=== PATIENT | male | born 1940 | race Caucasian/White ===

== ENCOUNTER 2020-12-10 11:53 | Observation (INO) ==
[~2020-12-10 11:53] MED LIST: ceFAZolin 2 GM in DEXTROSE 5% IN WATER 50 ML IV SCH
[2020-12-10] MEDS ORDERED: IPRATROPIUM/ALBUTEROL 3 ML AMPUL.NEB NEB PRN ×2 (12:00→14:11)
[2020-12-10] MEDS ORDERED: SCOPOLAMINE 1 PATCH PATCH TOPICAL PRN (12:00)
--- NOTE | 2020-12-10 12:27 | XRay Report ---
CLINICAL INFORMATION: CHF - clear for surgery COMPARISON: 11/08/2020 FINDINGS: Pacemaker and leads are stable satisfactory position. Moderate cardiomegaly is unchanged. Mediastinum and pulmonary vessels are normal. Right basilar infiltrate has cleared. Large region of dense consolidated atelectasis or infiltrate in the left base with moderate left pleural effusion show slight improvement. A right PICC line tip overlies the SVC right atrial junction. IMPRESSION: 1. Large dense consolidated left lower lobe region of atelectasis or, less likely, infiltrate. Moderate Left pleural effusion-slight improvement. 2. Interval resolution right basilar infiltrate 3. Moderate cardiomegaly, but no evidence of pulmonary vascular congestion to suggest CHF. No change. Interpreted and Authenticated by: Shemar Negrete 12/10/20
[2020-12-10] MEDS ORDERED: KETAMINE 50 MG/ML ML ONE (13:30)
[2020-12-10] MEDS ORDERED: ONDANSETRON 4 MG/2 ML VIAL ONE (13:30)
[2020-12-10] MEDS ORDERED: ePHEDrine 50 MG/ML AMPUL IV ONE (13:30)
[2020-12-10] MEDS ORDERED: LIDOCAINE HCL/PF 100 MG/5 ML SYRINGE IV ONE (13:30)
[2020-12-10] MEDS ORDERED: PHENYLEPHRINE 10 MG/ML VIAL ONE (13:30)
[2020-12-10] MEDS ORDERED: PROPOFOL 200 MG/20 ML VIAL IV ONE (13:30)
[2020-12-10] MEDS ORDERED: MAGNESIUM SULFATE 2 GM/50 ML BAG IV ONE (13:30)
[2020-12-10] MEDS ORDERED: BUPIVACAINE 0.5% 50 ML VIAL IJ ONE (13:41)
[2020-12-10 14:05] LABS: Appearance,Urine CLEAR (Clear); Bilirubin,Urine Negative (Negative); Color,Urine STRAW; Culture Indicated,Urine No; Glucose,Urine (UA) Negative (Negative); Ketones,Urine Negative (Negative); Leukocyte Esterase,Urine Negative /ug (Negative); Mucus,Urine FEW /hpf; Nitrate,Urine Negative (Negative); Protein,Urine Negative (Negative); Specific Gravity,Urine 1.006 (1.000-1.035); Urine Blood Negative (Negative); Urine Hyaline Cast 34 /lph (0-2); Urine RBC 1 /hpf (0-3); Urine Squamous Epithelial Cell 0 /hpf (0-4); Urine WBC 1 /hpf (0-4); Urobilinogen,Urine Negative
[2020-12-10] MEDS ORDERED: LACTATED RINGERS 250 ML IV PRN (14:11)
[2020-12-10] MEDS ORDERED: ONDANSETRON 4 MG/2 ML VIAL IV PRN (14:11)
[2020-12-10] MEDS ORDERED: ACETAMINOPHEN 1,000 MG/100 ML BAG IV ONE (14:11)
[2020-12-10] MEDS ORDERED: MEPERIDINE 25 MG/ML VIAL IV PRN (14:11)
[2020-12-10] MEDS ORDERED: fentaNYL 100 MCG/2 ML VIAL IV PRN (14:11)
[2020-12-10] MEDS ORDERED: PROMETHAZINE 25 MG/ML VIAL IV PRN (14:11)
[2020-12-10] MEDS ORDERED: diphenhydrAMINE 50 MG/ML VIAL IV PRN (14:11)
[2020-12-10] MEDS ORDERED: NALOXONE HCL 0.4 MG/ML VIAL IV PRN (14:11)
[2020-12-10] MEDS ORDERED: LACTATED RINGERS 1,000 ML IV SCH (14:15)
[2020-12-10] MEDS ORDERED: METHOCARBAMOL 750 MG TABLET PO PRN (14:33)
[2020-12-10] MEDS ORDERED: HYDROcodone/APAP 10/325MG TABLET PO PRN (14:33)
--- NOTE | 2020-12-10 14:33 | Brief Operative Note ---
Brief Operative Note Date of procedure: 12/10/20 Pre-op diagnosis: gangrenous left foot Post-op diagnosis: same Procedure: L below knee amputation Grafts/Implants: No Anesthesia: GETA Findings: same Complications: none Complications Description: none Surgeon: Dalton Drummond Shearer Operator: Maciej Ventura Tourniquet Time (Minutes): 14 Specimens Removed/Pathology: none sent Condition: stable Disposition: PACU
[2020-12-10] MEDS ORDERED: FLEETS ADULT ENEMA PR PRN (14:35)
[2020-12-10] MEDS ORDERED: MAGNESIUM HYDROXIDE 30 ML ORAL.SUSP PO PRN (14:35)
[2020-12-10] MEDS ORDERED: BISACODYL 10 MG SUPP.RECT PR PRN (14:35)
[2020-12-10] MEDS ORDERED: ACETAMINOPHEN 325 MG TABLET PO PRN (14:41)
--- NOTE | 2020-12-10 15:57 | Internal Medicine Consult Note ---
HPI Data of Consult Primary Care Provider: PCP No Consult Narrative Patient Information: Note initiated : 12/10/20 at 3:49 pm Service Date, if different from initiated Date: [] Patient: Semaj Spears 80 y/o M admitted on for Left Below Knee Amputation. Chief Complaint: Lt BKA, management of med issues - IM consult H&P:- Mr. Spears is a 80-year-old gentleman with a history of atrial fibrillati on/HTN/CKD/DM type II/CHF/edema/neuropathy and PVD with multiple nonhealing left lower extremity diabetic ulcers managed by wound care. Patient has been struggling with his comorbidities over the last few months and has been in between multiple facilities and hospitalizations unable to fully recover. He was referred for left BKA and underwent operative intervention by orthopedics Dr. Dalton Drummond. Postoperatively hospitalist service was consulted in light of extensive comorbidities and prior medical health issues and the need for internal medicine consultation during current hospitalization At the time of my evaluation patient is immediately postop. He is able to answer most the questions. Denies fever chills, lightheadedness dizziness. Postop labs unremarkable with white count 14.1, hemoglobin 9.3 creatinine 2.9, phosphorus 6.4. Patient denies fever, chills, headaches Review of systems 10 point review system was performed and is negative except for ones discussed above cc:: CC: Dalton Drummond [facility] PFS All Active Problems (Updated 12/11/20 @ 07:36 by Maciej Ventura PA-C) Below-knee amputation of left lower extremity determined by examination (Acute) MEDS/ALLERGIES Home Medications and Allergies Home Medications Medication Instructions Recorded Confirmed Type Saccharomyces boulardii 250 mg PO BID 11/08/20 12/05/20 History acetaminophen [Tylenol] 650 mg PO Q4H PRN 11/08/20 12/05/20 History apixaban [Eliquis] 2.5 mg PO BID 11/08/20 12/05/20 History aspirin 162 mg PO QDAY 11/08/20 12/05/20 History bisacodyl 10 mg AR QDAY PRN 11/08/20 12/05/20 History bumetanide [Bumex] 5 mg PO BID 11/08/20 12/10/20 History ferrous sulfate 325 mg PO QDAY 11/08/20 12/05/20 History insulin glargine 15 unit SUBCUT QDAY 11/08/20 12/05/20 History lisinopril 10 mg PO QDAY 11/08/20 12/05/20 History magnesium hydroxide [Milk of 30 ml PO QDAY PRN 11/08/20 12/05/20 History Magnesia] magnesium oxide-Mg AA chelate 250 cap PO QDAY 11/08/20 12/05/20 History [Magnesium (oxide/AA chelate)] potassium chloride 20 meq PO BID 11/08/20 12/05/20 History potassium, sodium phosphates 1 packet PO BID 11/08/20 12/05/20 History [Phos-NaK] sodium phosphates [Fleet Enema] 118 ml AR DAILYP PRN 11/08/20 12/10/20 History tamsulosin 0.4 mg PO QHS 11/08/20 12/05/20 History Santyl 1 applic TOPICAL QDAY 12/05/20 12/05/20 History meropenem-0.9% sodium chloride 1 g IV BID 12/05/20 12/05/20 History metolazone 5 mg PO QDAY 12/05/20 12/05/20 History sertraline 25 mg PO QDAY 12/05/20 12/05/20 History vancomycin 1.25 g IV Q48H 12/05/20 12/10/20 History insulin lispro 0 unit SUBCUT TIDAC 12/10/20 12/10/20 History metoprolol succinate 75 mg PO BID 12/10/20 12/10/20 History Allergies Allergy/AdvReac Type Severity Reaction Status Date / Time No Known Drug Allergies Allergy Verified 12/05/20 14:25 EXAM Constitutional Vitals: Temp Pulse Resp BP Pulse Ox 97.9 F 93 H 15 122/72 93 12/10/20 15:05 12/10/20 15:05 12/10/20 15:05 12/10/20 15:05 12/10/20 15:05 Sedated postop but opens eyes to commands Head normocephalic Oral cavity dry No ear nose discharge Eye movement symmetrical Neck supple no lymphadenopathy S1-S2 irregular Nonlabored breathing Nondistended nontender abdomen Left BKA dressing Skin no suspicious lesion Psych sedated but responds to commands Neuro, limited exam DATA Data Completed and Pending Labs: Labs from last 24 hours 12/10/20 12:50 Urine Color Straw Urine Appearance Clear Urine pH 8.0 Ur Specific [place] 1.006 Urine Protein Negative Urine Glucose (UA) Negative Urine Ketones Negative Urine Occult Blood Negative Urine Nitrate Negative Urine Bilirubin Negative Urine Urobilinogen Negative Ur Leukocyte Esterase Negative Urine RBC 1 Urine WBC 1 Ur Squamous Epith Cells 0 Urine Bacteria None Hyaline Casts 34 H Urine Mucus Few A Ur Culture Indicated? No A/P Narrative A/P Narrative: * Left BKA managed per orthopedics. Hospitalist consult * History of DM type II continue basal prandial insulin/CC diet * Anticoagulation on apixaban, * History of atrial fibrillation continue metoprolol/amiodarone * History of hypertension restart beta-steffany, MARLENA inhibitor with holding parameters. * Anxiety disorder continue sertraline * History of CHF with lymphedema on Bumex/metolazone. Check echocardiogram * BPH continue home dose Flomax * Prophylaxis restart anticoagulation once approved by orthopedics Plan * Postoperative care as per orthopedics * Postop labs * Echocardiogram * Restart home medications * Antihypertensives with holding parameters * Nutrition support/therapies as tolerated * Discharge planning Time Spent With Patient Time: Total time spent is greater than 50% in coordination of care (as documented) at patient's floor/unit and/or counseling patient:
[2020-12-10] MEDS: POTASSIUM CHLORIDE 20 MEQ TABLET PO SCH (17:07)
[2020-12-10 17:16] LABS: Basophils # (Auto) 0.05 K/mcL (0.00-0.20); Basophils % (Auto) 0.4 % (0.0-2.0); Eosinophils # (Auto) 0.09 K/mcL (0.00-0.70); Eosinophils % (Auto) 0.6 % (0.0-7.0); Hematocrit 29.6 % (41.0-55.0); Hemoglobin 9.3 g/dL (13.5-16.5); Lymphocytes # (Auto) 0.64 K/mcL (1.50-4.80); Lymphocytes % (Auto) 4.5 % (15.0-49.0); Mean Cell Volume 88.1 fL (80.0-100.0); Mean Corpuscular HGB Conc 31.4 g/dL (31.0-36.0); Mean Platelet Volume 10.8 fL (7.4-10.4); Monocytes # (Auto) 0.24 K/mcL (0.10-0.90); Monocytes % (Auto) 1.7 % (1.0-12.0); Neutrophils % (Auto) 92.8 % (38.0-78.0); Platelet Count 406 K/mcL (140-440); RBC 3.36 M/mcL (4.50-5.90); Red Cell Distribution Width 14.6 % (11.5-14.5); WBC 14.1 K/mcL (4.5-11.0)
[2020-12-10 17:48] LABS: ALT/SGPT 56 U/L (<40); AST/SGOT 87 U/L (<40); Albumin 2.4 gm/dL (3.2-5.2); Albumin/Globulin Ratio 0.7 (1.0-2.3); Alkaline Phosphatase 97 U/L (39-117); Bilirubin,Direct 0.2 mg/dL (<0.3); Bilirubin,Total 0.4 mg/dL (0.1-1.0); Blood Urea Nitrogen 78 mg/dL (8-23); Calcium 9.6 mg/dL (8.6-10.4); Carbon Dioxide 29 mmol/L (22-30); Chloride 92 mmol/L (96-108); Globulin 3.4 gm/dL (2.2-3.7); Glomerular Filtration Rate 20; Glucose 151 mg/dL (70-105); Lactate Dehydrogenase 194 U/L (135-225); Phosphorous 6.4 mg/dL (2.5-4.5); Triglycerides 98 mg/dL (<150); Uric Acid 12.6 mg/dL (2.5-8.0)
[2020-12-10] MEDS ORDERED: DEXTROSE 31 GM ORAL.SUSP PO PRN (18:32)
[2020-12-10] MEDS ORDERED: DEXTROSE 50% 50 ML VIAL IV PRN (18:32)
[2020-12-10] MEDS: 0.9 % SODIUM CHLORIDE 1,000 ML IV SCH (19:11)
[2020-12-10] MEDS: TAMSULOSIN 0.4 MG CAPSULE PO SCH (20:17)
[2020-12-10] MEDS: NEUTRA PHOS 1 PACKET PO SCH (20:17)
[2020-12-10] MEDS: LACTOBACILLUS 1 CAPSULE PO SCH (20:17)
[2020-12-10] MEDS: APIXABAN 5 MG TABLET PO SCH (20:17)
[2020-12-10] MEDS: BUMETANIDE 1 MG TABLET PO SCH (20:17)
[2020-12-10] MEDS: INSULIN LISPRO 1 UNIT/0.01 ML UNIT SQ SCH (20:18)
[2020-12-10] MEDS ORDERED: MEROPENEM IV SCH (21:00)
[2020-12-10] MEDS ORDERED: SODIUM CHLORIDE IV SCH (21:00)
[2020-12-10] MEDS ORDERED: [UNRECOGNIZED DRUG - OTHER] IV SCH (21:00)
[2020-12-10] MEDS ORDERED: METOPROLOL TARTRATE 50 MG TABLET PO SCH (21:00)
[2020-12-11] MEDS ORDERED: 0.9 % SODIUM CHLORIDE 10 ML SYRINGE IV PRN (04:02)
[2020-12-11 07:12] LABS: Basophils # (Auto) 0.01 K/mcL (0.00-0.20); Basophils % (Auto) 0.1 % (0.0-2.0); Eosinophils # (Auto) 0 K/mcL (0.00-0.70); Eosinophils % (Auto) 0 % (0.0-7.0); Hemoglobin 8.9 g/dL (13.5-16.5); Lymphocytes # (Auto) 0.61 K/mcL (1.50-4.80); Lymphocytes % (Auto) 4.7 % (15.0-49.0); Mean Cell Volume 89.8 fL (80.0-100.0); Mean Corpuscular HGB Conc 30.7 g/dL (31.0-36.0); Mean Platelet Volume 10.9 fL (7.4-10.4); Monocytes # (Auto) 0.48 K/mcL (0.10-0.90); Monocytes % (Auto) 3.7 % (1.0-12.0); Neutrophils % (Auto) 91.5 % (38.0-78.0); Platelet Count 412 K/mcL (140-440); RBC 3.23 M/mcL (4.50-5.90); Red Cell Distribution Width 14.7 % (11.5-14.5); WBC 12.9 K/mcL (4.5-11.0)
--- NOTE | 2020-12-11 07:34 | Orthopedic Progress Note ---
SUBJECTIVE Subjective Patient information: Note initiated : 12/11/20 at 7:30 am Service Date, if different from initiated Date: [] Patient: Semaj Spears 80 y/o M admitted on for Left Below Knee Amputation. Chief Complaint: [] Interval History: POD 1 from left below the knee amputation. Patient is doing well and has no pain this morning. He is doing very well and denies any other acute complaints such as CIFUENTES, SOB, fever, chills, nausea, vomiting, or dizziness. Constitutional Vitals: Vital Signs Temp Pulse Resp BP Pulse Ox 98.3 F 93 H 16 123/82 95 12/11/20 03:23 12/11/20 03:23 12/11/20 03:23 12/11/20 03:23 12/11/20 03:23 Period Temp Pulse Resp BP Sys/Redd Pulse Ox Last 24 Hr 96.7 F-98.5 F 73-93 11-22 87-123/65-84 91-99 Intake and Output 12/10/20 12/11/20 12/11/20 21:59 05:59 13:59 Intake Total 1290 300 Output Total 981 650 Balance 309 -350 Weight 229 lb 9.6 oz Intake & Output: Intake & Output 12/10/20 12/11/20 12/11/20 21:59 05:59 13:59 Intake Total 1290 300 Output Total 981 650 Balance 309 -350 Weight 229 lb 9.6 oz Intake: IV 150 Ancef 2 gm In Dextrose 5% in 50 Water 50 ml @ 100 mls/hr IV PREOP GABBY Rx#:[id number] Oral 240 300 IV - Manual Only 900 Output: Urine Catheter Amount 250 Straight 250 Void Amount 650 650 # of times incontinent of urine 1 Estimated Blood Loss 80 Other: Urine Appearance Clear Straight Clear Urine Color Bright Yellow Straight Bright Yellow Urine Odor Straight Normal OBJ DATA Labs CBC & Chem 7: 12/11/20 05:48 12/10/20 16:25 Labs: Abnormal Lab Results 12/11/20 12/10/20 12/10/20 05:48 16:25 16:25 WBC 12.9 H 14.1 H RBC 3.23 L 3.36 L Hgb 8.9 L 9.3 L Hct 29.0 L 29.6 L MCHC 30.7 L RDW 14.7 H 14.6 H MPV 10.9 H 10.8 H Neut % (Auto) 91.5 H 92.8 H Lymph % (Auto) 4.7 L 4.5 L Lymph # (Auto) 0.61 L 0.64 L Absolute Neutrophils 11.80 H 13.06 H Chloride 92 L BUN 78 H Creatinine 2.9 H Glucose 151 H Uric Acid 12.6 H Phosphorus 6.4 H* Magnesium 2.9 H AST 87 H ALT 56 H Total Protein 5.8 L Albumin 2.4 L Albumin/Globulin Ratio 0.7 L Hyaline Casts Urine Mucus 12/10/20 12:50 WBC RBC Hgb Hct MCHC RDW MPV Neut % (Auto) Lymph % (Auto) Lymph # (Auto) Absolute Neutrophils Chloride BUN Creatinine Glucose Uric Acid Phosphorus Magnesium AST ALT Total Protein Albumin Albumin/Globulin Ratio Hyaline Casts 34 H Urine Mucus Few A Meds: Medications Acetaminophen (Acetaminophen 325 Mg Tablet) 650 mg PO Q4HP PRN PRN Reason: Pain Hydrocodone Bitart/Acetaminophen (Hydrocodone/Apap 10/325mg Tablet) 0 tab PO Q4HP PRN; Protocol PRN Reason: Per Pain Protocol Apixaban (Apixaban 5 Mg Tablet) 2.5 mg PO BID [facility] Last Admin: 12/10/20 20:17 Dose: 2.5 mg Documented by: Aspirin (Aspirin 81 Mg Tab.Chew) 162 mg PO DAILY [facility] Bisacodyl (Bisacodyl 10 Mg Supp.Rect) 10 mg [place] QDAY PRN PRN Reason: Constipation Bumetanide (Bumetanide 1 Mg Tablet) 5 mg PO BID [facility] Last Admin: 12/10/20 20:17 Dose: 5 mg Documented by: Collagenase (Collagenase Top Oint Tube 30gm) 1 dose TOPICAL DAILY [facility] Dextrose (Dextrose 50% 50 Ml Vial) 0 ml IV UD PRN PRN Reason: Hypoglycemia Diagnostic Test (Pha) (Accu-Chek 1 Each Strip) 1 each FS ACHS [facility] Last Admin: 12/10/20 20:18 Dose: 1 each Documented by: Ferrous Sulfate (Ferrous Sulfate 325 Mg Tablet) 325 mg PO QAC [facility] Glucose (Dextrose 31 Gm Oral.Susp) 15 gm PO PRN PRN PRN Reason: Hypoglycemia Heparin Sodium (Porcine) (Heparin Flush 10 Units/Ml 5 Ml Syringe) 2 ml IV Q12 [facility] Sodium Chloride (Sodium Chloride 0.9%) 1,000 mls @ 75 mls/hr IV .[id number] [facility] Last Admin: 12/10/20 19:11 Dose: 75 mls/hr Documented by: Insulin Glargine (Insulin Glargine, Human 1 Unit/0.01 Ml) 15 unit SQ QDAY [facility] Insulin Human Lispro (Insulin Lispro 1 Unit/0.01 Ml Unit) 0 unit SQ ACHS [facility]; Protocol Last Admin: 12/10/20 20:18 Dose: 3 units Documented by: Lactobacillus Rhamnosus (Lactobacillus 1 Capsule) 1 cap PO BID [facility] Last Admin: 12/10/20 20:17 Dose: 1 cap Documented by: Lisinopril (Lisinopril 10 Mg Tablet) 10 mg PO QDAY [facility] Magnesium Hydroxide (Magnesium Hydroxide 30 Ml Oral.Susp) 30 ml PO QDAY PRN PRN Reason: Constipation Magnesium Oxide (Magnesium Oxide 400 Mg Tablet) 400 mg PO DAILY [facility] Methocarbamol (Methocarbamol 750 Mg Tablet) 750 mg PO Q6HP PRN PRN Reason: Muscle Spasm Metolazone (Metolazone 2.5 Mg Tablet) 5 mg PO DAILY@0830 [facility] Metoprolol Tartrate (Metoprolol Tartrate 50 Mg Tablet) 75 mg PO BID [facility] Last Admin: 12/10/20 20:16 Dose: 75 mg Documented by: Potassium Chloride (Potassium Chloride 20 Meq Tablet) 20 meq PO BIDCC [facility] Last Admin: 12/10/20 17:07 Dose: 20 meq Documented by: Potassium/Phosphorus/Sodium (Neutra Phos 1 Packet) 1 packet PO BID [facility] Last Admin: 12/10/20 20:17 Dose: 1 packet Documented by: Sertraline HCl (Sertraline 50 Mg Tablet) 25 mg PO DAILY [facility] Sodium Biphosphate/Sodium Phosphate (Fleets Adult Enema) 1 dose [place] DAILYP PRN PRN Reason: Constipation Sodium Chloride (0.9 % Sodium Chloride 10 Ml Syringe) 10 ml IV UD PRN PRN Reason: FLUSH Sodium Chloride (0.9 % Sodium Chloride 10 Ml Syringe) 10 ml IV Q12 [facility] Tamsulosin HCl (Tamsulosin 0.4 Mg Capsule) 0.4 mg PO QHS [facility] Last Admin: 12/10/20 20:17 Dose: 0.4 mg Documented by: A/P Assessment and plan (1) Below-knee amputation of left lower extremity determined by examination: Status: Acute Comment: Patient is POD 1 from Left Below the Knee Amputation 1. Leave dressings in place until POD 2 and then dressing changes daily, nupuroftony and guaze 2. Reapply knee brace after dressing changes 3. Call [facility] for Rigid Removable Brace fitting 4. Plan for discharge to SNF in next 1-2 days. Time Spent With Patient Time: Total time spent is greater than 50% in coordination of care (as documented) at patient's floor/unit and/or counseling patient:
[2020-12-11 08:02] LABS: ALT/SGPT 42 U/L (<40); AST/SGOT 55 U/L (<40); Albumin 2.2 gm/dL (3.2-5.2); Albumin/Globulin Ratio 0.6 (1.0-2.3); Alkaline Phosphatase 109 U/L (39-117); Bilirubin,Direct < 0.2 mg/dL (0-0.3); Bilirubin,Total 0.3 mg/dL (0.1-1.0); Blood Urea Nitrogen 84 mg/dL (8-23); Carbon Dioxide 28 mmol/L (22-30); Chloride 89 mmol/L (96-108); Globulin 3.4 gm/dL (2.2-3.7); Glomerular Filtration Rate 21; Glucose 309 mg/dL (70-105); Lactate Dehydrogenase 195 U/L (135-225); Phosphorous 6.8 mg/dL (2.5-4.5); Triglycerides 102 mg/dL (<150); Uric Acid 12.9 mg/dL (2.5-8.0)
[2020-12-11] MEDS: INSULIN LISPRO 1 UNIT/0.01 ML UNIT SQ SCH ×4 (08:54→21:43)
[2020-12-11] MEDS ORDERED: MAGNESIUM OXIDE 400 MG TABLET PO SCH (09:00)
[2020-12-11] MEDS: METOPROLOL SUCCINATE 50 MG TAB.XL.24H PO SCH ×2 (09:02→21:44)
[2020-12-11] MEDS: ASPIRIN 81 MG TAB.CHEW PO SCH (09:03)
[2020-12-11] MEDS: LISINOPRIL 10 MG TABLET PO SCH (09:03)
[2020-12-11] MEDS: METOLAZONE 2.5 MG TABLET PO SCH (09:03)
[2020-12-11] MEDS: SERTRALINE 50 MG TABLET PO SCH (09:03)
[2020-12-11] MEDS: LACTOBACILLUS 1 CAPSULE PO SCH ×2 (09:03→21:46)
[2020-12-11] MEDS: APIXABAN 5 MG TABLET PO SCH ×2 (09:03→21:45)
[2020-12-11] MEDS: POTASSIUM CHLORIDE 20 MEQ TABLET PO SCH ×2 (09:04→18:07)
[2020-12-11] MEDS: 0.9 % SODIUM CHLORIDE 1,000 ML IV SCH (09:04)
[2020-12-11] MEDS: FERROUS SULFATE 325 MG TABLET PO SCH (09:04)
[2020-12-11] MEDS: 0.9 % SODIUM CHLORIDE 10 ML SYRINGE IV SCH ×2 (09:09→21:50)
[2020-12-11] MEDS: NEUTRA PHOS 1 PACKET PO SCH ×2 (09:09→09:29)
--- NOTE | 2020-12-11 10:08 | Operative Note ---
DATE OF OPERATION: 12/10/2020 PREOPERATIVE DIAGNOSIS: Gangrenous left foot. POSTOPERATIVE DIAGNOSIS: Gangrenous left foot. OPERATION: [id number] amputation on the left. SURGEON: Dalton Drummond M.D. GRASSLAND CONSERVATIONIST: Maciej Ventura PA-C. The PA's assistance was required for the safe and efficient completion of the entire case. This provider's expertise and technical skill were required throughout the case. The PA assisted with preoperative coordination, intraoperative retraction, wound closure, dressing and splint application, as well as postoperative documentation and care coordination. ANESTHESIA: General. TOURNIQUET TIME: 14 minutes. ESTIMATED BLOOD LOSS: 100 mL. SUMMARY OF PROCEDURE: General anesthesia was attained. The left leg was prepped and draped. A thigh level tourniquet was put up. A modified fishmouth incision was made in the diaphyseal region of the left tibia and fibula. The anterior flap was taken down directly to the bone. The anterior muscles were released with the Bovie and vessels coagulated where necessary. The bone was osteotomized on the tibia and an anterior bevel was taken. This was roughly 4 fingerbreadths below the tibial tubercle. The fibula was osteotomized about 1 cm above the tibia cut. The posterior flap was then fashioned using a cake knife and beveling the posterior muscles. The popliteal artery was identified and suture ligated, as were surrounding veins. The saphenous nerve was identified. It was injected with 7 mL of Marcaine and then transected above the level of the bone cut. The superficial peroneal nerve was also identified and injected with 3 mL of Marcaine and then transected above the level of the bone cut. The tourniquet was let down. The wound was thoroughly irrigated. All bleeding points were coagulated or tied off. Two drill holes were made in the anterior tibia, and 2-0 Vicryl sutures were placed, which went from the bone into the superficial and deep posterior fascia reducing the posterior flap. The flap was then closed in layers using 0 Vicryl on the fascial closure, 2-0 Monocryl on the subcutaneous closure, and mattress sutures of 0 Prolene on the skin. A sterile compressive dressing was applied, followed by a knee immobilizer set at 0 to 30 degrees. The sponge and needle count was correct. The patient tolerated the procedure well and was taken to the recovery room in stable condition. TJF:sera Job ID: [id number] Doc ID: [id number] Dalton Drummond MD
--- NOTE | 2020-12-11 11:14 | Internal Med Progress Note ---
SUBJECTIVE Subjective Patient information: Note initiated : 12/11/20 at 11:11 am Service Date, if different from initiated Date: [] Patient: Semaj Spears 80 y/o M admitted on for Left Below Knee Amputation. Chief Complaint: [] Interval history: Mr. Spears is a 80-year-old gentleman with a history of atrial fibrillation/HTN/CKD/DM type II/CHF/edema/neuropathy and PVD with multiple nonhealing left lower extremity diabetic ulcers managed by wound care. Patient has been struggling with his comorbidities over the last few months and has been in between multiple facilities and hospitalizations unable to fully recover. He was referred for left BKA and underwent operative intervention by orthopedics Dr. Dalton Drummond. Postoperatively hospitalist service was consulted in light of extensive comorbidities and prior medical health issues and the need for internal medicine consultation during current hospitalization At the time of my evaluation patient is immediately postop. He is able to answer most the questions. Denies fever chills, lightheadedness dizziness. Postop labs unremarkable with white count 14.1, hemoglobin 9.3 creatinine 2.9, phosphorus 6.4. Patient denies fever, chills, headaches 5/5- patient postop day 1 doing well. No overnight events. Creatinine 2.8. White count downtrending. Hemoglobin 8.9. Extensive lymphedema noted. DC IV fluids. Continue home dose diuretics. Discharge planning per case management/ Ortho with recommendations. No additional concerns per nursing staff. Tolerating diet. Constitutional Vitals: Vital Signs Temp Pulse Resp BP Pulse Ox 98.6 F 96 H 16 126/73 91 12/11/20 08:00 12/11/20 08:00 12/11/20 08:00 12/11/20 08:00 12/11/20 08:00 Period Temp Pulse Resp BP Sys/Redd Pulse Ox Last 24 Hr 96.7 F-98.6 F 73-96 11-22 87-126/65-84 91-99 Intake and Output 12/10/20 12/11/20 12/11/20 21:59 05:59 13:59 Intake Total 5198 750 0934 Output Total 981 650 200 Balance 309 -350 800 Weight 104.145 kg alert oriented Nonlabored breathing Lymphedema noted Left BKA dressing Intake & Output: Intake & Output 12/10/20 12/11/20 12/11/20 21:59 05:59 13:59 Intake Total 0565 951 1834 Output Total 981 650 200 Balance 309 -350 800 Weight 104.145 kg Intake: IV 150 1000 Sodium Chloride 0.9% 1,000 ml @ 1000 75 mls/hr IV .[id number] [facility] Rx#: [id number] Ancef 2 gm In Dextrose 5% in 50 Water 50 ml @ 100 mls/hr IV PREOP [facility] Rx#:[id number] Oral 240 300 IV - Manual Only 900 Output: Urine Catheter Amount 250 Straight 250 Void Amount 650 650 200 # of times incontinent of urine 1 Estimated Blood Loss 80 Other: Urine Appearance Clear Straight Clear Urine Color Bright Yellow Straight Bright Yellow Urine Odor Straight Normal OBJ DATA Labs CBC & Chem 7: 12/11/20 05:48 12/11/20 05:48 Labs: Abnormal Lab Results 12/11/20 12/11/20 12/10/20 05:48 05:48 16:25 WBC 12.9 H RBC 3.23 L Hgb 8.9 L Hct 29.0 L MCHC 30.7 L RDW 14.7 H MPV 10.9 H Neut % (Auto) 91.5 H Lymph % (Auto) 4.7 L Lymph # (Auto) 0.61 L Absolute Neutrophils 11.80 H Sodium 130 L Chloride 89 L 92 L BUN 84 H 78 H Creatinine 2.8 H 2.9 H Glucose 309 H 151 H Uric Acid 12.9 H 12.6 H Phosphorus 6.8 H* 6.4 H* Magnesium 2.6 H 2.9 H AST 55 H 87 H ALT 42 H 56 H Total Protein 5.6 L 5.8 L Albumin 2.2 L 2.4 L Albumin/Globulin Ratio 0.6 L 0.7 L Hyaline Casts Urine Mucus 12/10/20 12/10/20 16:25 12:50 WBC 14.1 H RBC 3.36 L Hgb 9.3 L Hct 29.6 L MCHC RDW 14.6 H MPV 10.8 H Neut % (Auto) 92.8 H Lymph % (Auto) 4.5 L Lymph # (Auto) 0.64 L Absolute Neutrophils 13.06 H Sodium Chloride BUN Creatinine Glucose Uric Acid Phosphorus Magnesium AST ALT Total Protein Albumin Albumin/Globulin Ratio Hyaline Casts 34 H Urine Mucus Few A Meds: Medications Acetaminophen (Acetaminophen 325 Mg Tablet) 650 mg PO Q4HP PRN PRN Reason: Pain Hydrocodone Bitart/Acetaminophen (Hydrocodone/Apap 10/325mg Tablet) 0 tab PO Q4HP PRN; Protocol PRN Reason: Per Pain Protocol Apixaban (Apixaban 5 Mg Tablet) 2.5 mg PO BID [facility] Last Admin: 12/11/20 09:03 Dose: 2.5 mg Documented by: Aspirin (Aspirin 81 Mg Tab.Chew) 162 mg PO DAILY [facility] Last Admin: 12/11/20 09:03 Dose: 162 mg Documented by: Bisacodyl (Bisacodyl 10 Mg Supp.Rect) 10 mg [place] QDAY PRN PRN Reason: Constipation Bumetanide (Bumetanide 1 Mg Tablet) 5 mg PO BID [facility] Last Admin: 12/10/20 20:17 Dose: 5 mg Documented by: Collagenase (Collagenase Top Oint Tube 30gm) 1 dose TOPICAL DAILY [facility] Dextrose (Dextrose 50% 50 Ml Vial) 0 ml IV UD PRN PRN Reason: Hypoglycemia Diagnostic Test (Pha) (Accu-Chek 1 Each Strip) 1 each FS [facility] Last Admin: 12/11/20 08:21 Dose: 1 each Documented by: Ferrous Sulfate (Ferrous Sulfate 325 Mg Tablet) 325 mg PO [facility] Last Admin: 12/11/20 09:04 Dose: 325 mg Documented by: Glucose (Dextrose 31 Gm Oral.Susp) 15 gm PO PRN PRN PRN Reason: Hypoglycemia Heparin Sodium (Porcine) (Heparin Flush 10 Units/Ml 5 Ml Syringe) 2 ml IV Q12 [facility] Last Admin: 12/11/20 09:07 Dose: 2 ml Documented by: Insulin Glargine (Insulin Glargine, Human 1 Unit/0.01 Ml) 15 unit SQ QDAY [facility] Insulin Human Lispro (Insulin Lispro 1 Unit/0.01 Ml Unit) 0 unit SQ [facility]; Protocol Last Admin: 12/11/20 08:54 Dose: 6 units Documented by: Lactobacillus Rhamnosus (Lactobacillus 1 Capsule) 1 cap PO BID [facility] Last Admin: 12/11/20 09:03 Dose: 1 cap Documented by: Lisinopril (Lisinopril 10 Mg Tablet) 10 mg PO QDAY [facility] Last Admin: 12/11/20 09:03 Dose: 10 mg Documented by: Magnesium Hydroxide (Magnesium Hydroxide 30 Ml Oral.Susp) 30 ml PO QDAY PRN PRN Reason: Constipation Methocarbamol (Methocarbamol 750 Mg Tablet) 750 mg PO Q6HP PRN PRN Reason: Muscle Spasm Metolazone (Metolazone 2.5 Mg Tablet) 5 mg PO DAILY@0830 [facility] Last Admin: 12/11/20 09:03 Dose: 5 mg Documented by: Metoprolol Succinate (Metoprolol Succinate 50 Mg Tab.Xl.24h) 75 mg PO BID [facility] Last Admin: 12/11/20 09:02 Dose: 75 mg Documented by: Potassium Chloride (Potassium Chloride 20 Meq Tablet) 20 meq PO BIDCC [facility] Last Admin: 12/11/20 09:04 Dose: 20 meq Documented by: Sertraline HCl (Sertraline 50 Mg Tablet) 25 mg PO DAILY [facility] Last Admin: 12/11/20 09:03 Dose: 25 mg Documented by: Sodium Biphosphate/Sodium Phosphate (Fleets Adult Enema) 1 dose [place] DAILYP PRN PRN Reason: Constipation Sodium Chloride (0.9 % Sodium Chloride 10 Ml Syringe) 10 ml IV UD PRN PRN Reason: FLUSH Sodium Chloride (0.9 % Sodium Chloride 10 Ml Syringe) 10 ml IV Q12 [facility] Last Admin: 12/11/20 09:09 Dose: Not Given Documented by: Tamsulosin HCl (Tamsulosin 0.4 Mg Capsule) 0.4 mg PO QHS [facility] Last Admin: 12/10/20 20:17 Dose: 0.4 mg Documented by: A/P Narrative A/P Narrative: * Left BKA managed per orthopedics. Postop day 2 Hospitalist consult * History of DM type II continue basal prandial insulin/CC diet * Anticoagulation on apixaban, * History of atrial fibrillation continue metoprolol/amiodarone * History of hypertension restart beta-steffany, MARLENA inhibitor with holding parameters. * History of stage IV CKD creatinine gradually downtrending. * Anxiety disorder continue sertraline * History of CHF with lymphedema on Bumex/metolazone. Check echocardiogram * BPH continue home dose Flomax * Prophylaxis restart anticoagulation once approved by orthopedics Plan * Postoperative care as per orthopedics * Postop labs * Echocardiogram * DC IV fluids * Restart home medications * Antihypertensives with holding parameters * Nutrition support/therapies as tolerated * Discharge planning Time Spent With Patient Time: Total time spent is greater than 50% in coordination of care (as documented) at patient's floor/unit and/or counseling patient:
[2020-12-11] MEDS: INSULIN GLARGINE, HUMAN 1 UNIT/0.01 ML SQ SCH (12:15)
[2020-12-11] MEDS: BUMETANIDE 1 MG TABLET PO SCH ×2 (12:17→21:45)
[2020-12-11] MEDS: COLLAGENASE TOP OINT TUBE 30GM TOPICAL SCH (12:44)
[2020-12-11] MEDS: cefTRIAXone 2 GM in DEXTROSE 5% IN WATER 50 ML IV SCH (15:39)
[2020-12-11] MEDS: AZITHROMYCIN 500 MG in DEXTROSE 5% IN WATER 250 ML IV SCH (15:40)
[2020-12-11] MEDS: TAMSULOSIN 0.4 MG CAPSULE PO SCH (21:45)
[2020-12-12] MEDS: INSULIN LISPRO 1 UNIT/0.01 ML UNIT SQ SCH ×2 (07:06→12:03)
[2020-12-12 07:44] LABS: Basophils # (Auto) 0.04 K/mcL (0.00-0.20); Basophils % (Auto) 0.3 % (0.0-2.0); Eosinophils # (Auto) 0.08 K/mcL (0.00-0.70); Eosinophils % (Auto) 0.6 % (0.0-7.0); Hematocrit 26.4 % (41.0-55.0); Hemoglobin 8.6 g/dL (13.5-16.5); Lymphocytes # (Auto) 1.14 K/mcL (1.50-4.80); Lymphocytes % (Auto) 9.1 % (15.0-49.0); Mean Cell Volume 85.7 fL (80.0-100.0); Mean Corpuscular HGB Conc 32.6 g/dL (31.0-36.0); Mean Platelet Volume 10.7 fL (7.4-10.4); Monocytes # (Auto) 0.71 K/mcL (0.10-0.90); Monocytes % (Auto) 5.7 % (1.0-12.0); Neutrophils % (Auto) 84.3 % (38.0-78.0); Platelet Count 407 K/mcL (140-440); RBC 3.08 M/mcL (4.50-5.90); Red Cell Distribution Width 14.6 % (11.5-14.5); WBC 12.5 K/mcL (4.5-11.0)
[2020-12-12] MEDS: METOPROLOL SUCCINATE 50 MG TAB.XL.24H PO SCH (08:26)
[2020-12-12] MEDS: LISINOPRIL 10 MG TABLET PO SCH (08:26)
[2020-12-12] MEDS: FERROUS SULFATE 325 MG TABLET PO SCH (08:27)
[2020-12-12] MEDS: POTASSIUM CHLORIDE 20 MEQ TABLET PO SCH (08:27)
[2020-12-12] MEDS: LACTOBACILLUS 1 CAPSULE PO SCH (08:27)
[2020-12-12] MEDS: BUMETANIDE 1 MG TABLET PO SCH (08:28)
[2020-12-12] MEDS: METOLAZONE 2.5 MG TABLET PO SCH (08:28)
[2020-12-12] MEDS: APIXABAN 5 MG TABLET PO SCH (08:28)
[2020-12-12] MEDS: SERTRALINE 50 MG TABLET PO SCH (08:29)
[2020-12-12] MEDS: ASPIRIN 81 MG TAB.CHEW PO SCH (08:29)
[2020-12-12] MEDS: AZITHROMYCIN 500 MG in DEXTROSE 5% IN WATER 250 ML IV SCH (08:50)
[2020-12-12] MEDS: INSULIN GLARGINE, HUMAN 1 UNIT/0.01 ML SQ SCH (09:04)
[2020-12-12] MEDS: 0.9 % SODIUM CHLORIDE 10 ML SYRINGE IV SCH (09:04)
[2020-12-12] MEDS: COLLAGENASE TOP OINT TUBE 30GM TOPICAL SCH (09:04)
--- NOTE | 2020-12-12 10:06 | Discharge Plan ---
DC Instructions-General Patient Instructions Dressing Care: May shower in 3 days and Other Additional Dressing Instructions: change dressing every 2 days- xeroform, gauze, kerlix, ezekiel Discharge Plan Patient/Caregiver Discharge Instructions Activity: non-weight bearing Diet: Consistent Carbohydrate Prescriptions: New hydrocodone-acetaminophen 7.5-325 mg Tablet 1 - 2 tab PO Q4H Qty: 40 RF: 0 No Action aspirin 162 mg Tablet,Delayed Release (Dr/Ec) 162 mg PO QDAY RF: 0 potassium chloride 10 mEq Capsule, Extended Release 20 meq PO BID RF: 0 bumetanide [Bumex] 2 mg Tablet 5 mg PO BID RF: 0 magnesium hydroxide [Milk of Magnesia] 400 mg/5 mL Suspension 30 ml PO QDAY PRN (Reason: Constipation) RF: 0 tamsulosin 0.4 mg Capsule 0.4 mg PO QHS RF: 0 bisacodyl 10 mg Suppository 10 mg MO QDAY PRN (Reason: Constipation) RF: 0 lisinopril 10 mg Tablet 10 mg PO QDAY RF: 0 Fleet Enema 19-7 gram/118 mL Enema 118 ml MO DAILYP PRN (Reason: Constipation) RF: 0 ferrous sulfate 325 mg (65 mg iron) Tablet,Delayed Release (Dr/Ec) 325 mg PO QDAY RF: 0 Magnesium (oxide/AA chelate) 300 mg Capsule 250 cap PO QDAY RF: 0 Saccharomyces boulardii 250 mg Capsule 250 mg PO BID RF: 0 insulin glargine 100 unit/mL Cartridge 15 unit SUBCUT QDAY RF: 0 potassium, sodium phosphates [Phos-NaK] 280-160-250 mg Powder In Packet 1 packet PO BID RF: 0 Eliquis 2.5 mg Tablet 2.5 mg PO BID RF: 0 acetaminophen [Tylenol] 325 mg Capsule 650 mg PO Q4H PRN (Reason: Pain) RF: 0 metolazone 2.5 mg Tablet 5 mg PO QDAY RF: 0 vancomycin 1,000 mg Recon Soln 1.25 g IV Q48H RF: 0 sertraline 25 mg Tablet 25 mg PO QDAY RF: 0 meropenem-0.9% sodium chloride 1 gram/50 mL Piggyback 1 g IV BID RF: 0 Santyl 250 UNITS/G cream 1 applic topical QDAY RF: 0 metoprolol succinate 50 mg Tablet Extended Release 24 Hr 75 mg PO BID RF: 0 insulin lispro 100 unit/mL Solution 0 unit SUBCUT TIDAC RF: 0 Follow Up Plan Follow up with: Maciej Ventura PA-C [Physician Floor Finisher Helper] - (1-2 weeks) Patient Disposition: Xfer SNF Rehab Potential: Fair I certify that the patient requires SNF services: Yes Overall status at discharge: patient is not back to baseline Discharge Orders: Discharge Order (Routine); Ordered 12/12/20 Ordered By: Dalton Drummond
[2020-12-12] MEDS: cefTRIAXone 2 GM in DEXTROSE 5% IN WATER 50 ML IV SCH (10:08)
[2020-12-12 10:18] LABS: ALT/SGPT 26 U/L (<40); AST/SGOT 40 U/L (<40); Albumin 2.1 gm/dL (3.2-5.2); Albumin/Globulin Ratio 0.6 (1.0-2.3); Alkaline Phosphatase 113 U/L (39-117); Bilirubin,Direct < 0.2 mg/dL (0-0.3); Bilirubin,Total 0.2 mg/dL (0.1-1.0); Blood Urea Nitrogen 84 mg/dL (8-23); Carbon Dioxide 30 mmol/L (22-30); Chloride 87 mmol/L (96-108); Globulin 3.3 gm/dL (2.2-3.7); Glomerular Filtration Rate 22; Glucose 180 mg/dL (70-105); Lactate Dehydrogenase 227 U/L (135-225); Phosphorous 5.9 mg/dL (2.5-4.5); Triglycerides 128 mg/dL (<150); Uric Acid 13.1 mg/dL (2.5-8.0)
--- NOTE | 2020-12-12 12:26 | Discharge Summary ---
Discharge Provider Provider Patient information: Note initiated : 12/12/20 at 12:23 pm Service Date, if different from initiated Date: [] Patient: Semaj Spears 80 y/o M admitted on 12/10/20 for Left Below Knee Amputation. Discharge diagnosis * Left BKA managed per orthopedics. [facility] * History of DM type II Managed on basal prandial insulin/CC diet * Anticoagulation for CVA prophylaxis continue apixaban * History of atrial fibrillation continue metoprolol * History of hypertension -Continue home medications * History of stage IV CKD creatinine gradually downtrending. Follow-up with nephrology as outpatient * Anxiety disorder continue sertraline * History of CHF with lymphedema on Bumex/metolazone. * BPH continue home dose Flomax Brief hospital course Mr. Spears is a 80-year-old gentleman with a history of atrial fibrillation/HTN/CKD/DM type II/CHF/edema/neuropathy and PVD with multiple nonhealing left lower extremity diabetic ulcers managed by wound care. Patient has been struggling with his comorbidities over the last few months and has been in between multiple facilities and hospitalizations unable to fully recover. He was referred for left BKA and underwent operative intervention by orthopedics Dr. Dalton Drummond. Postoperatively hospitalist service was consulted in light of extensive comorbidities and prior medical health issues and the need for internal medicine consultation during current hospitalization At the time of my evaluation patient is immediately postop. He is able to answer most the questions. Denies fever chills, lightheadedness dizziness. Postop labs unremarkable with white count 14.1, hemoglobin 9.3 creatinine 2.9, phosphorus 6.4. Patient denies fever, chills, headaches 5/5- patient postop day 1 doing well. No overnight events. Creatinine 2.8. White count downtrending. Hemoglobin 8.9. Extensive lymphedema noted. DC IV fluids. Continue home dose diuretics. Discharge planning per case management/Ortho with recommendations. No additional concerns per nursing staff. Tolerating diet. 5/6-clinically improving. Creatinine downtrending. Generalized lymphedema improved. Prosthetic cast obtained today. Ortho recommends discharging with advised to follow-up with orthopedics outpatient. No overnight events including fever chills. Doing well. Continue post operative care/nutrition support and therapies as indicated Date of admission: 12/10/20 14:33 Discharge date: 12/12/20 Primary care physician: PCP No Consults: 12/10/20 14:42 Consult to Physician [CONS] Routine Comment: Consulting Provider: Tolu Pena Reason For Exam: Physician to Consult Discharge Meds Discharge Medications Home Medications Eliquis 2.5 mg PO BID 11/08/20 [History Confirmed 12/05/20 Last Taken Unknown] Fleet Enema [address] DAILYP PRN 11/08/20 [History Confirmed 12/10/20 Last Taken Unknown] Magnesium (oxide/AA chelate) 250 cap PO QDAY 11/08/20 [History Confirmed 12/05/20 Last Taken Unknown] Saccharomyces boulardii 250 mg PO BID 11/08/20 [History Confirmed 12/05/20 Last Taken Unknown] acetaminophen [Tylenol] 650 mg PO Q4H PRN 11/08/20 [History Confirmed 12/05/20 Last Taken Unknown] aspirin 162 mg PO QDAY 11/08/20 [History Confirmed 12/05/20 Last Taken Unknown] bisacodyl [address] QDAY PRN 11/08/20 [History Confirmed 12/05/20 Last Taken Unknown] bumetanide 5 mg PO BID 11/08/20 [History Confirmed 12/10/20 Last Taken 12/10/20] ferrous sulfate 325 mg PO QDAY 11/08/20 [History Confirmed 12/05/20 Last Taken Unknown] insulin glargine 15 unit SUBCUT QDAY 11/08/20 [History Confirmed 12/05/20 Last Taken Unknown] lisinopril 10 mg PO QDAY 11/08/20 [History Confirmed 12/05/20 Last Taken Unknown] magnesium hydroxide [Milk of Magnesia] 30 ml PO QDAY PRN 11/08/20 [History Confirmed 12/05/20 Last Taken Unknown] potassium chloride 20 meq PO BID 11/08/20 [History Confirmed 12/05/20 Last Taken Unknown] potassium, sodium phosphates [Phos-NaK] 1 packet PO BID 11/08/20 [History Confirmed 12/05/20 Last Taken Unknown] tamsulosin 0.4 mg PO QHS 11/08/20 [History Confirmed 12/05/20 Last Taken Unknown] Santyl 1 applic TOPICAL QDAY 12/05/20 [History Confirmed 12/05/20 Last Taken Unknown] meropenem-0.9% sodium chloride 1 g IV BID 12/05/20 [History Confirmed 12/05/20 Last Taken Unknown] metolazone 5 mg PO QDAY 12/05/20 [History Confirmed 12/05/20 Last Taken Unknown] sertraline 25 mg PO QDAY 12/05/20 [History Confirmed 12/05/20 Last Taken Unknown] vancomycin 1.25 g IV Q48H 12/05/20 [History Confirmed 12/10/20 Last Taken 12/10/20] insulin lispro 0 unit SUBCUT TIDAC 12/10/20 [History Confirmed 12/10/20 Last Taken Unknown] metoprolol succinate 75 mg PO BID 12/10/20 [History Confirmed 12/10/20 Last Taken Unknown] hydrocodone-acetaminophen 1 - 2 tab PO Q4H #40 tab 12/12/20 [Rx Last Taken Unknown] COURSE Hospital Course Hospital course: . Discharge diagnosis: . Time Spent with Patient Time attestation: Total time spent providing and/or coordinating discharge services: EXAM Constitutional Vitals: Temp Pulse Resp BP Pulse Ox 98.3 F 80 18 102/63 95 12/12/20 12:10 12/12/20 12:10 12/12/20 12:10 12/12/20 12:10 12/12/20 12:10 Discharge Data Data Completed and Pending Labs on day of discharge: Labs from last 24 hours 12/12/20 12/12/20 06:06 06:06 WBC 12.5 H RBC 3.08 L Hgb 8.6 L Hct 26.4 L MCV 85.7 MCH 27.9 MCHC 32.6 RDW 14.6 H Plt Count 407 MPV 10.7 H Neut % (Auto) 84.3 H Lymph % (Auto) 9.1 L Gooding % (Auto) 5.7 Eos % (Auto) 0.6 Baso % (Auto) 0.3 Lymph # (Auto) 1.14 L Gooding # (Auto) 0.71 Eos # (Auto) 0.08 Baso # (Auto) 0.04 Absolute Neutrophils 10.49 H Sodium 128 L Potassium 3.7 Chloride 87 L Carbon Dioxide 30 Anion Gap 11.0 BUN 84 H Creatinine 2.6 H GFR Calculation 22 Glucose 180 H Uric Acid 13.1 H Calcium 9.0 Phosphorus 5.9 H* Magnesium 2.4 Total Bilirubin 0.2 Direct Bilirubin < 0.2 GGT 43 AST 40 H ALT 26 Alkaline Phosphatase 113 Lactate Dehydrogenase 227 H Total Protein 5.4 L Albumin 2.1 L Globulin 3.3 Albumin/Globulin Ratio 0.6 L Triglycerides 128 Discharge Plan Patient/Caregiver Discharge Instructions Activity: non-weight bearing Diet: Consistent Carbohydrate Instructions: Above the Knee Amputation (DC) Activity Restrictions/Additional Instructions: Discharge Instructions: Do the exercises at home that physical therapy gave you. No weight bearing with left leg.. Change dressing every 2 days with xeroform, gauze, kerlix and Андрей wrap. You may start showering on post op day #2. To avoid constipation while taking any narcotic pain medication, take an over the counter stool softener/laxative. Use your ice packs as directed, on for 20 minutes at a time, throughout the day. Ice and elevation will help with pain and swelling. If you have any questions or concerns call your orthopedic surgeon before going to the emergency room. [facility] has a laborer construction or leak gang physician 24 hours per day/7 days per week and can be reached at [phone]. Call for fevers above 100.5 or pain not controlled by medication. Your prescriptions are with your discharge information. Some medications were electronically transmitted to your pharmacy of choice. Take Aspirin as prescribed to prevent blood clots (see medication list). This discharge packet is provided to you to help keep you informed about your care. We want to ensure you get everything you need when you go home. You will also be receiving a call from us in a few days to follow up with you and see how you are doing since your discharge. This gives us a chance to listen to any concerns you maybe experiencing since you were discharged or any additional needs you may have, as well as providing us feedback on your care experience. We strive to always provide excellent care and thank you for your feedback and for choosing [facility]. Prescriptions: New hydrocodone-acetaminophen 7.5-325 mg Tablet 1 - 2 tab PO Q4H Qty: 40 RF: 0 Continued aspirin 162 mg Tablet,Delayed Release (Dr/Ec) 162 mg PO QDAY RF: 0 potassium chloride 10 mEq Capsule, Extended Release 20 meq PO BID RF: 0 bumetanide 2 mg Tablet 5 mg PO BID RF: 0 magnesium hydroxide [Milk of Magnesia] 400 mg/5 mL Suspension 30 ml PO QDAY PRN (Reason: Constipation) RF: 0 tamsulosin 0.4 mg Capsule 0.4 mg PO QHS RF: 0 bisacodyl 10 mg Suppository [address] QDAY PRN (Reason: Constipation) RF: 0 lisinopril 10 mg Tablet 10 mg PO QDAY RF: 0 Fleet Enema 19-7 gram/118 mL Enema [address] DAILYP PRN (Reason: Constipation) RF: 0 ferrous sulfate 325 mg (65 mg iron) Tablet,Delayed Release (Dr/Ec) 325 mg PO QDAY RF: 0 Magnesium (oxide/AA chelate) 300 mg Capsule 250 cap PO QDAY RF: 0 Saccharomyces boulardii 250 mg Capsule 250 mg PO BID RF: 0 insulin glargine 100 unit/mL Cartridge 15 unit SUBCUT QDAY RF: 0 potassium, sodium phosphates [Phos-NaK] 280-160-250 mg Powder In Packet 1 packet PO BID RF: 0 Eliquis 2.5 mg Tablet 2.5 mg PO BID RF: 0 acetaminophen [Tylenol] 325 mg Capsule 650 mg PO Q4H PRN (Reason: Pain) RF: 0 metolazone 2.5 mg Tablet 5 mg PO QDAY RF: 0 vancomycin 1,000 mg Recon Soln 1.25 g IV Q48H RF: 0 sertraline 25 mg Tablet 25 mg PO QDAY RF: 0 meropenem-0.9% sodium chloride 1 gram/50 mL Piggyback 1 g IV BID RF: 0 Santyl 250 UNITS/G cream 1 applic topical QDAY RF: 0 metoprolol succinate 50 mg Tablet Extended Release 24 Hr 75 mg PO BID RF: 0 insulin lispro 100 unit/mL Solution 0 unit SUBCUT TIDAC RF: 0 Other Ambulatory Orders: Wound Care Instructions (CONT) Location: None Selected Ordered By: Dalton Drummond OT Discharge Order (Routine) Location: None Selected Ordered By: Tolu Pena Outpatient PICC Care (Daily) Location: None Selected Ordered By: Tolu Pena Physical Therapy at Discharge - General (Routine) Location: None Selected Ordered By: Tolu Pena ST Discharge Order (Routine) Location: None Selected Ordered By: Tolu Pena Follow Up Plan Follow up with: Maciej Ventura PA-C [Physician Market Risk Analyst] - (Please call and schedule an appointment to be seen in 1-2 weeks.) Patient Disposition: Xfer SNF Rehab Potential: Fair I certify that the patient requires SNF services: Yes Overall status at discharge: patient is not back to baseline Discharge Orders: Discharge Order (Routine); Ordered 12/12/20 Ordered By: Dalton Drummond
--- NOTE | 2020-12-12 13:23 | Surgical Pathology Report ---
Histology Microscopic Diagnosis Specimen A- LEFT LOWER EXTREMITY, [id number] AMPUTATION: --- ULCERATED SKIN WITH SUBCUTANEOUS NECROTIZING ACUTE INFLAMMATION, GRANULATION TISSUE AND FAT NECROSIS. --- CHRONIC OSTEOMYELITIS. 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 --- BONE AND SOFT TISSUE MARGINS VIABLE. (EBD:sln) Clinical History Diabetes melitis; peripheral vascular disease left foot ulcer. Gross Description Received in fresh designated left [id number] extremity, is a left [id number] lower extremity amputation. It is 36 cm in length by 12.5 cm in diameter heel to margin. The attached foot is 27 x 8.6 x 7.5 cm. On the heel there is a 4 x 3 cm area of skin slippage. Additionally on the heel extending to the upper side of the foot is a 10 x 5 cm area of ulceration. This extends to the fifth, fourth and third toe. On the tip of the great toe, there is a 1.2 x 1.2 cm area of ulceration extending to the nail bed. The anterior and posterior arteries are approximately 80% occluded along their length. There are calcifications present. Clinical Research Monitor sections submitted in seven cassettes: A1 - tibia scrapings; A2 - fibula scrapings; A3 - margins; A4 - areas of skin slippage; A5 - areas of ulceration on the heel and near fourth and fifth toes and area of ulceration on great toe; A6 - anterior tibial artery; A7 - posterior tibial artery. (SCB:adj) Electronically Signed Tasha Ugarte MD, FCAP Electronically Signed 12/12/2020 13:22
== END 2020-12-12 13:20 ==
LOC: MEDSUR 11:53 → SUR 11:53 → MEDSUR 11:58
PROVIDERS: ADMIT Orthopaedic Surgery Foot and Ankle Surgery; ATTEND Internal Medicine